=== PATIENT | female | born 1995 ===

== ENCOUNTER 2018-04-11 11:16 | Emergency (ER) | payer BC, OTHER ==
[2018-04-11 11:50] VITALS: BP 120/72
--- NOTE | 2018-04-11 12:17 | UC ---
Throat Pain/Nasal Isai HPI - HPI Summary HPI Summary: Fever, ST, aches, malaise starting a couple days ago. Left work today sick. Has 3-year-old at home. - History of Current Complaint Chief Complaint: UCRespiratory Stated Complaint: SORE THROAT,FEVER Time Seen by Provider: 04/11/18 11:56 Hx Obtained From: Patient Hx Last Menstrual Period: 03/27/18 ?: No Onset/Duration: Gradual Onset, Lasting Days Severity: Moderate Pain Intensity: 9 Cough: None Associated Signs & Symptoms: Positive: Nasal Discharge, Fever - Allergies/Home Medications Allergies/Adverse Reactions: Allergies Allergy/AdvReac Type Severity Reaction Status Date / Time No Known Allergies Allergy Verified 04/11/18 11:45 PMH/Surg Hx/FS Hx/Imm Hx Previously Healthy: Yes - Surgical History Surgical History: None - Family History Known Family History: Negative: Blood Disorder - Social History Occupation: Employed Full-time Lives: With Family Alcohol Use: Occasionally Substance Use Type: None Smoking Status (MU): Heavy Every Day Tobacco Smoker Type: Cigarettes Amount Used/How Often: 1/2 PPD Length of Time of Smoking/Using Tobacco: since 16 y/o - Immunization History Most Recent Tetanus Shot: UTD Review of Systems Constitutional: Fever, Chills, Fatigue Skin: Negative Eyes: Negative ENT: Sore Throat Respiratory: Negative Cardiovascular: Negative Gastrointestinal: Negative Genitourinary: Negative Motor: Negative Neurovascular: Negative Musculoskeletal: Negative Neurological: Negative Psychological: Negative Is Patient Immunocompromised?: No All Other Systems Reviewed And Are Negative: Yes Physical Exam Triage Information Reviewed: Yes Appearance: Well-Nourished, Pain Distress Vital Signs: Initial Vital Signs Temp 100.9 F 04/11/18 11:45 Pulse 111 04/11/18 11:45 Resp 18 04/11/18 11:45 BP 120/72 04/11/18 11:45 Pulse Ox 100 04/11/18 11:45 Vital Signs Reviewed: Yes Eye Exam: Normal Eyes: Positive: Conjunctiva Clear ENT: Positive: Hearing grossly normal, Pharyngeal erythema, Tonsillar swelling, Tonsillar exudate. Negative: Sinus tenderness Dental Exam: Normal Neck: Positive: Enlarged Nodes @ - tonsillar Respiratory Exam: Normal Respiratory: Positive: Chest non-tender, Lungs clear, Normal breath sounds, No respiratory distress, No accessory muscle use Cardiovascular: Positive: No Murmur, Tachycardia Musculoskeletal Exam: Normal Neurological Exam: Normal Neurological: Positive: Alert Psychological Exam: Normal Skin Exam: Normal Throat Pain/Nasal Course/Dx - Differential Dx/Diagnosis Provider Diagnoses: Tonsillitis Discharge - Sign-Out/Discharge Documenting (check all that apply): Patient Departure - Discharge Plan Condition: Stable Disposition: HOME Prescriptions: Amoxicillin PO (*) [Amoxicillin 400 MG/5 ML SUSP*] 800 mg PO BID #140 bottle Patient Education Materials: Tonsillitis (ED) Referrals: Shana Baxter MD [Primary Care Provider] - Additional Instructions: Your rapid strep was negative, but I am treating you with an antibiotic because I suspect non Group A strep. Call or come back if you have new/worrisome symptoms. - Billing Disposition and Condition Condition: STABLE Disposition: Home
== END 2018-04-11 12:15 | disposition home or self-care (01) ==
LOC: UCCORT 11:16
DX: J03.90 Acute tonsillitis, unspecified (principal); F17.210 Nicotine dependence, cigarettes, uncomplicated
CPT/HCPCS: 87651; 99212; G0463

== ENCOUNTER 2018-05-12 08:51 | Emergency (ER) | payer BC ==
[2018-05-12 09:16] VITALS: BP 141/91
--- NOTE | 2018-05-12 09:44 | UC ---
Abdominal Pain Female HPI - HPI Summary HPI Summary: 23 YO FEMALE who comes to clinic today with a complaint of one month of intermittent pelvic pain. It's becoming more frequent and it has been worse over the last 1 day. Denies any vaginal discharge and no dysuria. Pain is worse during intercourse. But the pain can happen at any time. No change in bowels. No prior surgeries. She reports a normal Pap 2 years ago. She was on the DePO.. Until August of this year. Her last menstrual period is 22 April. Her periods have been somewhat irregular since coming off of the DEPO. The pain originates down low in the pelvis and then shoots up into the abdomen bilaterally. - History of Current Complaint Chief Complaint: UCGeneralIllness Stated Complaint: URINARY W/BACK PAIN Time Seen by Provider: 05/12/18 09:29 Hx Last Menstrual Period: 04/22/18 Pain Intensity: 3 Allergies/Adverse Reactions: Allergies Allergy/AdvReac Type Severity Reaction Status Date / Time No Known Allergies Allergy Verified 05/12/18 09:00 Home Medications: Home Medications Naproxen Sodium [Aleve] 440 mg PO ONCE PRN 05/12/18 [History Confirmed 05/12/18] PMH/Surg Hx/FS Hx/Imm Hx Previously Healthy: Yes Other GI/ History: HAS ONE CHILD - Surgical History Surgical History: None - Family History Known Family History: Negative: Blood Disorder Family History: BREAST CANCER, UTERINE POLYPS. - Social History Alcohol Use: Occasionally Substance Use Type: None Smoking Status (MU): Heavy Every Day Tobacco Smoker Type: Cigarettes Amount Used/How Often: 1/2 PPD Length of Time of Smoking/Using Tobacco: since 16 y/o - Immunization History Most Recent Tetanus Shot: UTD Review of Systems Constitutional: Negative Skin: Negative Eyes: Negative ENT: Negative Respiratory: Negative Cardiovascular: Negative Gastrointestinal: Abdominal Pain Genitourinary: Negative Motor: Negative Neurovascular: Negative Musculoskeletal: Negative Neurological: Negative Psychological: Negative Is Patient Immunocompromised?: No All Other Systems Reviewed And Are Negative: Yes Physical Exam Triage Information Reviewed: Yes Appearance: Well-Appearing, No Pain Distress, Well-Nourished Vital Signs: Initial Vital Signs Temp 99 F 05/12/18 09:01 Pulse 87 05/12/18 09:01 Resp 15 05/12/18 09:01 BP 141/91 05/12/18 09:01 Pulse Ox 98 05/12/18 09:01 Vital Signs Reviewed: Yes Eye Exam: Normal ENT Exam: Normal Neck exam: Normal Neck: Positive: Supple Respiratory Exam: Normal Respiratory: Positive: Lungs clear, Normal breath sounds, No respiratory distress Cardiovascular: Positive: RRR Abdomen Description: Positive: Other: - Mild tenderness to palpation mid lower abdomen no rebound. Negative: CVA Tenderness (R), CVA Tenderness (L), Guarding Bowel Sounds: Positive: Present Pelvic Exam: Positive: External Exam Normal, Speculum Exam Normal, No Masses Musculoskeletal Exam: Normal Musculoskeletal: Positive: Strength Intact, ROM Intact Neurological Exam: Normal Neurological: Positive: Alert Psychological Exam: Normal Skin Exam: Normal Abd Pain Female Course/Dx - Course Course Of Treatment: Order Information: US TRANSVAGINAL. Accession Number: [id number]. CPT: 56884. Indication: Bilateral pelvic pain. Comparison: No relevant prior exams available on the [facility] PACS for comparison. Technique: Transvaginal pelvic ultrasound. Report: Unremarkable 8.1 x 3.9 x 5.0 cm anteverted uterus. 9.5 mm endometrium within. normal limits. Physiologic small volume of free fluid in the cul-de-sac. 3.9 x 2.5 x 2.4 cm RIGHT ovary with documented vascular flow is remarkable for small. follicles only. 3.0 x 2.1 x 2.3 cm LEFT ovary with documented vascular flow is remarkable for small. follicles only. No visualized extra ovarian adnexal region lesions evident. IMPRESSION: #. Negative pelvic ultrasound. . <Electronically signed by Richmond Ram MD in OV > 05/12/18 1010. Dictated By: Richmond Ram MD. Dictated Date/Time: 1010. Transcribed Date/Time: 05/12/18 1008. Discussed results with the patient. Blood work and pelvic cultures pending. The plan is to follow up with her primary care doctor Dr. Baxter. If her pain worsens or she gets a fever B discussed going to the emergency department for further evaluation. - Differential Dx/Diagnosis Provider Diagnoses: PELVIC PAIN Discharge - Sign-Out/Discharge Documenting (check all that apply): Patient Departure All imaging exams completed and their final reports reviewed: Yes - Discharge Plan Condition: Stable Disposition: HOME Patient Education Materials: Pelvic Pain in Women (ED) Forms: *Work Release Referrals: Shana Baxter MD [Medical Doctor] - Additional Instructions: FOLLOW UP WITH YOUR DOCTOR. CONTACT THEM TODAY TO ARRANGE FOLLOW UP. GO TO THE EMERGENCY DEPARTMENT FOR ANY WORSENING OF YOUR CONDITION OR QUESTIONS OR CONCERNS. - Billing Disposition and Condition Condition: STABLE Disposition: Home
--- NOTE | 2018-05-12 10:13 | RAD ---
Indication: Bilateral pelvic pain. Comparison: No relevant prior exams available on the [facility]ACS for comparison. Technique: Transvaginal pelvic ultrasound. Report: Unremarkable 8.1 x 3.9 x 5.0 cm anteverted uterus. 9.5 mm endometrium within normal limits. Physiologic small volume of free fluid in the cul-de-sac. 3.9 x 2.5 x 2.4 cm RIGHT ovary with documented vascular flow is remarkable for small follicles only. 3.0 x 2.1 x 2.3 cm LEFT ovary with documented vascular flow is remarkable for small follicles only. No visualized extra ovarian adnexal region lesions evident. IMPRESSION: #. Negative pelvic ultrasound.
[2018-05-12 15:09] LABS: ABS Basophils 0 10^3/ul (0-0.2); ABS Eosinophils 0.1 10^3/ul (0-0.6); ABS Lymphocytes 2.2 10^3/ul (1.0-4.8); ABS Monocytes 0.7 10^3/ul (0-0.8); ABS Neutrophils 5.3 10^3/ul (1.5-7.7); ABS Nucleated RBC 0 10^3/ul; Eosinophil % 1.5 % (0-6); Hematocrit 45 % (35-47); Hemoglobin 15.7 g/dl (12.0-16.0); Lymphocyte % 26.3 % (25-47); Mean Corpuscular HGB Conc 35 g/dl (31-36); Mean Corpuscular Hemoglobin 32 pg (27-31); Mean Corpuscular Volume 91 fL (80-97); Nucleated Red Blood Cells % 0; Platelet Count 241 10^3/ul (150-450); Red Blood Count 4.97 10^6/ul (4.00-5.40); Red Cell Distribution Width 14 % (10.5-15); White Blood Count 8.5 10^3/ul (3.5-10.8)
[2018-05-12 15:26] LABS: EGFR Non-African American 84.9 (>60)
--- NOTE | 2018-05-14 07:29 | UC ---
- Progress Note Progress Note: + gardnerella neg ezio neg trich neg GC/chal Rx for flagyl sent to pharmacy please call pt and advise ETOH precautions - 48 hours before and after taking ljj 05/14/18 Discharge - Sign-Out/Discharge Documenting (check all that apply): Post-Discharge Follow Up All imaging exams completed and their final reports reviewed: Yes - Discharge Plan Condition: Stable Disposition: HOME Patient Education Materials: Pelvic Pain in Women (ED) Forms: *Work Release Referrals: Shana Baxter MD [Medical Doctor] - Additional Instructions: FOLLOW UP WITH YOUR DOCTOR. CONTACT THEM TODAY TO ARRANGE FOLLOW UP. GO TO THE EMERGENCY DEPARTMENT FOR ANY WORSENING OF YOUR CONDITION OR QUESTIONS OR CONCERNS. - Billing Disposition and Condition Condition: STABLE Disposition: Home
== END 2018-05-12 10:52 | disposition home or self-care (01) ==
LOC: UCCORT 08:51
DX: R10.2 Pelvic and perineal pain (principal); F17.210 Nicotine dependence, cigarettes, uncomplicated
CPT/HCPCS: 36415; 76830; 80053; 81003; 83690; 84702; 85025; 86140; 87480; 87491; 87510; 87591; 87661; 99211; G0463

== ENCOUNTER → 2018-06-04 | Emergency (ER) | payer SELFPAY ==
[~2018-06-04] MED LIST: PPD test dose* 5 TU/0.1 ML TEST (*USE PPD ORDER SET*) ONE
--- NOTE | 2018-06-08 09:29 | UC ---
Discharge - Sign-Out/Discharge Documenting (check all that apply): Post-Discharge Follow Up All imaging exams completed and their final reports reviewed: No Studies - Discharge Plan Disposition: HOME Referrals: No Primary Care Phys,NOPCP [Primary Care Provider] - - Billing Disposition and Condition Disposition: Home
== END | disposition home or self-care (01) ==
LOC: UCCORT 14:22
DX: Z02.1 Encounter for pre-employment examination (principal); Z11.1 Encounter for screening for respiratory tuberculosis